=== PATIENT | male | born 1975 | race Caucasian/White ===

== ENCOUNTER 2019-10-13 09:37 | Outpatient (CLI) | payer OTHER, SELFPAY ==
--- NOTE | ~2019-10-13 | XR_ITS ---
EXAMINATION: XR foot RT min 3V DATE: 10/13/2019 09:59 INDICATION: Lateral right foot pain TECHNIQUE: Dorsoplantar, two oblique and lateral views of the right foot were obtained. COMPARISON: None. FINDINGS: Alignment is normal. No fracture. Joint spaces are normal. Soft tissues are unremarkable. IMPRESSION: 1. Negative right foot radiographs. Reviewed, dictated and finalized at location B.
== END 2019-10-13 09:38 | disposition home or self-care (01) ==
LOC: ANHIMG 09:43
PROVIDERS: Visit Provider Podiatrist Foot & Ankle Surgery
DX: M79.671 Pain in right foot (principal)
CPT/HCPCS: 73630

== ENCOUNTER 2022-03-17 17:10 | Emergency (ER) | payer OTHER, SELFPAY ==
--- NOTE | 2022-03-17 17:22 | ED.GENADULT ---
HPI - General Adult General Chief complaint: Urogenital-Male Stated complaint: swelling in groin Time Seen by Provider: 03/17/22 17:27 Source: patient, RN notes reviewed and old records reviewed Mode of arrival: ambulatory Limitations: no limitations History of Present Illness HPI narrative: 46-year-old male with a history of hypertension and leukemia comes in with increased swelling to abdomen, penis and scrotum. Patient states it started about a week ago, had increased his water pill per his doctor's advice but has not called him back. states the swelling only gets better when he lays down for period of time but returns within 15 minutes of standing up. Patient denies any trouble with urination. Patient has not contacted his leukemia doctor today. reports that he was told that if he does continue to have swelling to go to [place] [facility] and not to an urgent care. Patient is not willing to go to the ER currently. discussed with patient and What our limitations are, unable to do ultrasound, unable to do blood work and the importance of having follow-up at [place] where his leukemia doctor is located. At that time patient and decided to leave. We also discussed that we are not even on the same computer system as [facility]. Onset (ago): week(s) (1) Related Data Home Medications Medication Instructions Recorded Confirmed dasatinib 100 mg tablet (Sprycel) mg PO 03/17/22 furosemide 40 mg tablet mg 03/17/22 insulin glargine-yfgn 100 unit/mL unit subcut 03/17/22 (3 mL) subcutaneous pen (Semglee (insulin glargine-yfgn) Pen) insulin lispro 100 unit/mL subcut 03/17/22 subcutaneous pen (Humalog KwikPen (U-100) Insulin) pen needle, diabetic 29 gauge x 03/17/22 03/17/2202/13 (BD Ultra-Fine Original Pen Needle) pioglitazone 15 mg-metformin 850 tablet 03/17/22 mg tablet potassium chloride 20 mEq meq PO 03/17/22 tablet,extended release(part/cryst) (Klor-Con M) semaglutide 0.25 mg or 0.5 mg (2 mg subcut 03/17/22 mg/1.5 mL) subcutaneous pen injector (Ozempic) spironolactone 25 mg tablet mg 03/17/22 timolol maleate 0.5 % eye drops drp 03/17/22 Allergies Allergy/AdvReac Type Severity Reaction Status Date / Time Penicillins Allergy Unknown Verified 01/19/15 15:06 Review of Systems Review of Systems: All systems reviewed & are unremarkable except as noted in HPI and below Constitutional: Constitutional: Reports no additional constitutional complaints Eyes: Eyes: Reports no additional eye complaints ENT: Reports system reviewed and no additional complaints, except as documented Cardiovascular: Cardiovascular: Reports no additional cardiovascular complaints, Denies chest pain and Denies dyspnea Respiratory: Respiratory: Reports no additional respiratory complaints, Denies chest congestion, Denies cough and Denies dyspnea Gastrointestinal: Gastrointestinal: Reports no additional gastrointestinal complaints, Denies abdominal pain, Denies nausea and Denies vomiting Genitourinary: Comments: Swelling Musculoskeletal: Musculoskeletal: Reports no additional musculoskeletal complaints Integumentary/Breasts: Skin/Breast: Reports system reviewed and no additional complaints, except as docu Neurologic: Reports system reviewed and no additional complaints, except as documented Psychiatric: Psychiatric: Reports no additional psychiatric complaints Allergic/Immunologic: Allergic/Immunologic: Reports no additional allergic/immunologic complaints PMFSH Comments At the time of my signature, I reviewed and agree with the nursing past medical, surgical, social, and family history. There is no relevant family history pertinent to the patient complaint. Exam Const: General: cooperative, healthy appearing, comfortable, no acute distress, well developed, alert and well nourished Nutritional Appearance: well nourished and obese Orientation/consciousness: patient oriented x3 Limitatio
[2022-03-17 17:24] VITALS: BP 154/69; PULSE 86; RESP 18; TEMP 36.4; O2SAT 99
== END 2022-03-17 17:38 | disposition home or self-care (01) ==
PROVIDERS: Emergency Provider Nurse Practitioner; PCP Family Medicine
DX: C95.90 Leukemia, unspecified not having achieved remission (principal); I10 Essential (primary) hypertension
CPT/HCPCS: 99211; G0463

== ENCOUNTER 2022-05-10 09:44 | Emergency (ER) | payer OTHER, SELFPAY ==
--- NOTE | 2022-05-10 09:50 | ED.URI ---
HPI - URI/Sore Throat General Chief Complaint: Upper Respiratory Infection Stated Complaint: Sore Throat,Congestion,Cough Time Seen by Provider: 05/10/22 10:11 Source: patient and RN notes reviewed Mode of arrival: ambulatory Limitations: no limitations History of Present Illness HPI Narrative: 46-year-old male presents with concern for 2 week history of nasal congestion, rhinorrhea, cough. Reports he started getting a sore throat last night with fever and chills. He reports he has been taking Mucinex DM. Reports a co-worker has strep throat MD elicited complaint: cough, sore throat and nasal congestion Related Data Home Medications Medication Instructions Recorded Confirmed dasatinib 100 mg tablet (Sprycel) mg PO 03/17/22 furosemide 40 mg tablet mg 03/17/22 insulin glargine-yfgn 100 unit/mL unit subcut 03/17/22 (3 mL) subcutaneous pen (Semglee (insulin glargine-yfgn) Pen) insulin lispro 100 unit/mL subcut 03/17/22 subcutaneous pen (Humalog KwikPen (U-100) Insulin) pen needle, diabetic 29 gauge x 03/17/22 03/17/22/2 (BD Ultra-Fine Original Pen Needle) pioglitazone 15 mg-metformin 850 tablet 03/17/22 mg tablet potassium chloride 20 mEq meq PO 03/17/22 tablet,extended release(part/cryst) (Klor-Con M) semaglutide 0.25 mg or 0.5 mg (2 mg subcut 03/17/22 mg/1.5 mL) subcutaneous pen injector (Ozempic) spironolactone 25 mg tablet mg 03/17/22 timolol maleate 0.5 % eye drops drp 03/17/22 Allergies Allergy/AdvReac Type Severity Reaction Status Date / Time Penicillins AdvReac Unknown Unknown Verified 05/10/22 09:55 Review of Systems Review of Systems: CONSTITUTIONAL: Report malaise, chills, fever. EYES: Denies visual changes, redness, or discharge. ENT: Reports rhinorrhea, congestion, sinus pain, and sore throat. CARDIOVASCULAR: Denies chest pain, palpitations, or edema. RESPIRATORY: Reports cough. Denies dyspnea. GASTROINTESTINAL: Denies abdominal pain, nausea, vomiting, diarrhea SKIN: Denies rash or itching. MUSCULOSKELETAL: Denies myalgia. NEUROLOGIC: Denies headache. All systems reviewed & are unremarkable except as noted in HPI and below PMFSH Comments At time of signature, agree with nursing past medical, surgical, social and family history. There is no relevant family history pertinent to the presenting complaint Exam Narrative: GENERAL: Well-appearing, well-nourished, and in no acute distress. HEAD: Normocephalic EYES: PERRLA, conjunctivae clear ENT: Nares clear, turbinates edematous and erythematous, yellow discharge. Mucous membranes moist. TM pearly ricketts with dull light reflex bilaterally; no tragal tenderness. Oropharynx not erythematous without lesions. Tonsils not enlarged and without exudate, no drooling, no hoarseness, no trismus, uvula midline. NECK: Supple. No lymphadenopathy CHEST: Clear to auscultation, breath sounds equal. No wheezing, rhonchi, rales, or stridor. No respiratory distress, speaks in full sentences. HEART: Regular rate and rhythm. No murmur heard. SKIN: Warm, dry, no rash. NEURO: Alert and oriented x3. PSYCH: Normal mood and affect Course Course Emergency Course: Patient is aware of diagnosis, understands and agrees to treatment plan. Anticipatory guidance given. Patient agrees to follow-up as directed and is aware of reasons to seek care at the emergency department. Portions of this record may have been created with voice recognition software Level of Care: Express Care Visit Vital Signs Vital signs: Reviewed. MDM - URI/Sore Throat MDM Narrative Medical decision making narrative: Differential diagnosis considered: Jamison virus, strep pharyngitis, allergic rhinitis, upper respiratory tract infection, sinusitis, rhinosinusitis, nasopharyngitis. viral pharyngitis, otitis media, otitis externa, pneumonia, bronchitis, viral cough syndrome, viral syndrome, and influenza. Exam findings show no acute concerns or changes; patient is non
[2022-05-10 09:56] VITALS: BP 137/82; PULSE 77; RESP 18; TEMP 36.9; O2SAT 98
== END 2022-05-10 10:24 | disposition home or self-care (01) ==
PROVIDERS: Emergency Provider Nurse Practitioner; PCP Family Medicine
DX: J01.90 Acute sinusitis, unspecified (principal); E11.9 Type 2 diabetes mellitus without complications; Z85.6 Personal history of leukemia
CPT/HCPCS: 87081; 87880; 99213; G0463

== ENCOUNTER 2024-08-18 14:39 | Emergency (ER) | payer OTHER, SELFPAY ==
--- OUTSIDE RECORDS SUMMARY | 2024-08-18 14:41 | XMS_ITS | Encounter Summary ---
Author Organization [facility] Address [address] [place] [address] Phone Care Team Providers Care Planning Engineer Name Role Phone Bernice Zepeda MD Unavailable Efrain Zamarripa MD Unavailable Rebeca Rodriguez MD Unavailable [phone] Roddy España MD Primary Care Provider [phone] Micaela Teran Unavailable Encounter Details Date Type Department Care Team (Late st Contact Info) Description 08/06/2024 Results Follow-Up [facility] Cardiology [address], [address] [place] [address] [place], [place] [address] [place] [address] Pro B-type natriuretic peptide, CBC with auto differential, Comprehensive metabolic panel, Additional followed-up results: 4 Social History Tobacco Use Types Packs/Day Years Used Date Smoking Tobacco: Former Cigarettes Q uit: 2009 Passive Smoke Exposure: Past Smokeless Tobacco: Never Alcohol Use Standard Drinks/Week Comments Never 0 (1 standard drink = 0.6 oz pur e alcohol) AUDIT-C Answer Date Recorded Frequency of Alcohol Consumption Never 10/22/2018 Average Number of Drinks Not on file 019 Frequency of Binge Drinking Not on file 10/13 Sex and Gender Information Value Date Recorded Sex Assigned at Not on file Legal Sex Male 10:14 PM [employer] Gender Identity Not on file Sexual Orientation Male 07/15/2023 3: 50 PM CDT 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 Not on file Not on file Not on file documented as of this encounter Plan of Treatment Not on file documented as of this encounter Visit Diagnoses Not on filedocumented in this encounter Care Teams Planning Engineer Relationship Specialty Start Date End Date Roddy España MD [facility] [place] [address] PCP - General Family Medicine 01/22/24 Bernice Zepeda MD Referring Physician Endocrinology Diabetes & Metabolism 01/10/23 Efrain Zamarripa MD Referring Physician Cardiology 07/12/23 Rebeca Rodriguez MD Medical Oncologist/Hematologis t Hematology 07/12/23 Micaela Teran PA [address] [facility], [address] [address] Physician Cloth Sponger Physician Cloth Sponger 07/20/24 documented as of this encounter
--- OUTSIDE RECORDS SUMMARY | 2024-08-18 14:42 | XMS_ITS | Clinical Summary ---
Author Organization [facility] Address [address] [place] [address] Care Team Providers Care Financial Aids Officer Name Role Phone Bernice Zepeda MD Unavailable Efrain Zamarripa MD Unavailable Rebeca Rodriguez MD Unavailable Roddy España MD Primary Care Provider Micaela Teran Unavailable Allergies Active Allergy Reactions Criticality Noted Date Comments Penicillins Hives Medium 08/18/2017 Medications multivit-min/folic/ vit K/lycop (MEN'S MULTIVITAMIN ORAL) Take by mouth every morning Active ergocalciferol (VITAMIN D) 50,000 unit capsule once a week Activ e glucagon (BAQSIMI) 3 mg/actuation spray,non-aerosol Administer 1 spray into one nostril as needed (hypoglycemia , repeat after 15 minutes if needed) 1 each 021 Active daSATinib (SpryceL) 50 mg tabletIndications:C ML (chronic myelocytic leukemia) (HCC) Take 1 tablet (50 mg total) by mouth daily 90 tablet 1 024 Active pen needle, diabetic (BD Ultra-Fine Orig Pen Needle) 29 gauge x 1/2 needleIndications:T ype 2 diabetes mellitus with other specified complication, with long-term current use of insulin (HCC) USE WITH INSULIN INJECTIONS FOUR TIMES A DAY 400 each 024 Active blood-glucose sensor (Dexcom G7 Sensor) deviceIndications:T ype 2 diabetes mellitus with other specified complication, with long-term current use of insulin ([facility]) Use for continuous glucose monitor. Change sensor every 10 days. 9 each 3 024 Active pioglitazone-metfor min (ACTOPLUS MET) 15-850 mg per tabletIndications:T ype 2 diabetes mellitus with other specified complication, with long-term current use of insulin ([facility]) Take 1 tablet by mouth 2 (two) times a day with meals 180 tablet 3 025 2025 Active insulin lispro (HumaLOG) 100 unit/mL pen for injectionIndication s:Type 2 diabetes mellitus with other specified complication, with long-term current use of insulin ([facility]) Inject under the skin before meals, 12 units with breakfast, 14 units with lunch and 12 units with dinner plus 1:25 > 150 mg/dL. TDD 60 units daily 60 mL 3 025 Active dulaglutide (Trulicity) 3 mg/0.5 mL pen injectorIndications :Type 2 diabetes mellitus with other specified complication, with long-term current use of insulin ([facility]) Inject 0.5 mL (3 mg total) under the skin every 7 days 6 mL 2 025 Active fenofibrate nanocrystallized (TRICOR) 145 mg tabletIndications:H ypertriglyceridemia Take 1 tablet (145 mg total) by mouth daily 90 tablet 3 025 2025 Active torsemide (DEMADEX) 20 mg tabletIndications:E ssential hypertension,CML (chronic myelocytic leukemia) ([facility]),Acute on chronic diastolic heart failure ([facility]) Take 2 tablets (40 mg total) by mouth 2 (two) times a day Take 2 tablets (40 mg) by mouth daily with breakfast and 2 tablets (40 mg) with lunch 360 tablet 3 025 Active insulin glargine (TOUJEO MAX) 300 unit/mL (3 mL) pen for injectionIndication s:Type 2 diabetes mellitus with other specified complication, with long-term current use of insulin ([facility]) 48 units daily 025 Active empagliflozin (Jardiance) 25 mg tabletIndications:C ML (chronic myelocytic leukemia) ([facility]),Chronic diastolic heart failure (HCC) 1 pill daily 025 Active empagliflozin (Jardiance) 10 mg tabletIndications:C ML (chronic myelocytic leukemia) (HCC),Chronic diastolic heart failure (HCC) 2 pills daily 025 2024 Discontinued Active Problems Problem Noted Date Diagnosed Date Type 2 diabetes mellitus with other specified co mplication 04/14/2024 Assessment & Plan (07/20/2024 7:09 PM CDT): Glucoses running somewhat high, needs a little more basal insulin and increase Jardiance, to start. Mixed hyperlipidemia 04/14/2024 Assessment & Plan (07/20/2024 7:09 PM CDT): Continue fenofibrate and improve glycemic control. Assessment & Plan (04/14/2024 4:47 PM INTERNAL SECURITY MANAGER): - Last LDL 35, TG 365 (01/2023), TG above goal - Need to optimize glycemic control - Repeat lipid panel - Consider starting statin for primary cardiovascular protection and to help achieve TG target <150 mg/dL Skin lesion 01/22/2024 Class 2 severe obesity due t o excess calories with serious comorbidity and body mass index (BMI) of 37.0 to 37.9 in adult 10/16/2023 Assessment & Plan (04/14/2024 4:48 PM INTERNAL SECURITY MANAGER): - Continue Trulicity 1.5 mg once a week. Plan to up-titrate to 3 mg once a week. - Will plan to continue to up-titrate dose as tolerated per patient. Assessment & Plan (10/16/2023 3:26 PM CDT): - Discussed carb counting and tracking. Advised to eat less than 100 grams of carbs per day. - Advised to increase physical activity - alternating between cardio and weight based exercise. ADA recommends at least 150 minutes of moderate physical activity weekly. - Increase Trulicity to 1.5 mg weekly - will continue to up-titrate as tolerated. Double vision 03/27/2022 Elevated JVP (jugular venous pressure) 2 Essential hypertension 11/22/2020 Assessment & Plan (04/14/2024 4:43 PM INTERNAL SECURITY MANAGER): - At goal today - Continue current management Assessment & Plan (10/16/2023 3:25 PM CDT): - At goal today Assessment & Plan (01/31/2021 4:45 PM INTERNAL SECURITY MANAGER): - chlorthalidone 12.5 mg as prescribed by cardio-oncology Plantar fasciitis of right foot 08/04/2020 Vitamin D insufficiency 02/10/2020 Assessment & Plan (04/14/2024 4:48 PM INTERNAL SECURITY MANAGER): - Last Vitamin D 37 (02/2022), replete - Continue chronic supplement Assessment & Plan (01/16/2024 9:37 PM INTERNAL SECURITY MANAGER): Continue chronic supplement. Assessment & Plan (07/15/2023 8:43 PM CDT): Continue chronic supplement. Assessment & Plan (01/10/2023 9:43 PM INTERNAL SECURITY MANAGER): Continue chronic supplement. Assessment & Plan (09/20/2022 7:40 PM CDT): Continue chronic supplement. Recheck level Assessment & Plan (11/18/2021 5:16 PM CDT): He is taking terminal supervisor supplements. Check Vitamin D. Assessment & Plan (08/12/2021 8:02 PM CDT): He is taking terminal supervisor supplements. Check Vitamin D. Assessment & Plan (01/31/2021 7:05 PM INTERNAL SECURITY MANAGER): Continue chronic supplement. Assessment & Plan (02/11/2020 4:06 PM INTERNAL SECURITY MANAGER): Continue chronic supplement and recheck level Proliferative diabetic retin opathy associated with type 2 diabetes mellitus 10/23/2018 Erectile dysfunction 10/22/2018 Assessment & Plan (10/23/2018 2:22 PM CDT): First need to screen for general metabolic issues, improved glycemic control. 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 Kidney fxn stable thusfar. - Give 300 mg allopurinol PO today now - D/c home with 1 mo supply of 300mg allopurinol qdaily - [facility] will monitor and decide on extent and duration of therapy. CML (chronic myelocytic leukemia) 08/18/2017 Assessment & Plan (07/20/2024 7:10 PM CDT): May affect the interpretation of the hemoglobin A1c. Not currently receiving steroids. Assessment & Plan (01/10/2023 9:42 PM INTERNAL SECURITY MANAGER): May affect the interpretation of the hemoglobin A1c. Assessment & Plan (05/12/2019 4:23 PM CDT): May affect the interpretation of the hemoglobin A1c. Also need to recheck vitamin-D level Assessment & Plan (08/19/2017 2:50 PM CDT): Almost certainly CML per further blood smear review by hematology. Classic features include myelocyte bump, hypereosinophilia and basophilia not typically associated with leukemoid reaction. No blasts seen and no c/f AML or hyperviscosity syndrome at this level of leukocytosis. - Hematology and ID both consulted - appreciate recs - Plan for follow up with [facility] in [facility] (Dr. Rebeca Rodriguez) this coming Sunday08/21/17 -- Send out for BCR-ABL serum PCR -- If PCR positive, may spare the patient future BM biopsy - Plan to begin treatment w/ BCR-Abl inhibitors in the near future - Safe to discharge home today Localized swelling, mass, or lump of lower extre mity, left 08/18/2017 Assessment & Plan (08/19/2017 2:51 PM CDT): Appearance 1 wk ago in s/o repeated camping and manual labor while on knees. Suspect benign (nonballotable) but may be potential biopsy source if c/f lymphoma (would be atypical given his leukocytosis is neutrophilic). 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 Needs insulin adjustments as well as restart Trulicity. Assessment & Plan (10/16/2023 3:24 PM CDT): - Diabetes is complicated by proliferative diabetic retinopathy, mild renal impairment, HTN, HLD and obesity. Uncontrolled. Lab Results Component Value Date HGBA1C 7.8 10/16/2023 Per [place] [employer], goal A1c is less 7% without significant hypoglycemia. - Management Goal: reduce A1c <7% - New Regimen: Pioglitazone-Metformin 15-850 mg BID Jardiance 10 mg daily Toujeo U300 35 units daily Increase Trulicity 1.5 mg weekly Try carb ratio of 1 unit for every 10 grams of carbs plus 1:25 > 150 mg/dL with meals - Discussed base + sliding scale versus carb ratio. Discussed carb counting and tracking using apps such as travayl. Carb counting handout provided. Discussed trial of using carb ratio to see if that resolves his issues surrounding dinner time. - Will continue to titrate Trulicity as tolerated. He would greatly benefit from other GLP1-RA therapy such as Ozempic or Mounjaro. - Advised bolusing 10-15 minutes before each meal. - Advised annual dilated eye exam - UTD. - Advised checking blood glucose before driving - Discussed hypoglycemia risk, and treatment such as the rule of 15s and the use of glucagon - Annual labs are UTD - Update me on consistent glycemia excursions or if there is any hypoglycemia. - Advised and ensured that I am available via phone or [employer] if they have any concerns for hypo/hyperglycemia, medication refills, etc. Assessment & Plan (07/15/2023 8:43 PM CDT): Suboptimal control but medication changes and issues. Need to follow updated numbers once therapy has stabilized. Assessment & Plan (01/10/2023 9:44 PM INTERNAL SECURITY MANAGER): Glucoses variable but within a reasonable margin of safety. On multiple modalities of therapy. Needs repeat A1c now that he is back on GLP-1 agonist therapy. Also need lipid panel Assessment & Plan (09/20/2022 7:41 PM CDT): Glucoses high, particularly after meals so needs adjustment in mealtime insulin. Would also benefit from restarting GLP1 agonist therapy. Assessment & Plan (11/18/2021 5:31 PM CDT): Check Hemoglobin A1c. Continue using Dexcom for continuous monitoring and low BG alarms. He denies recent trouble with hypoglycemia. He is tolerating pioglitazone 30mg and metformin 1700mg well and without side effects at this time. He is taking Semglee AM daily, consistently. He is taking Humalog with meals and using sliding scale. Recommend starting GLP1-RA to help prevent hyperglycemia and promote weight loss. -He denies a history of pancreatitis and family history of MTC. The side effects have been discussed. Have labs done. Assessment & Plan (08/12/2021 8:05 PM CDT): Check Hemoglobin A1c. Continue using Dexcom for continuous monitoring and low BG alarms. He denies recent trouble with hypoglycemia. He is tolerating pioglitazone 30 mg and metformin 1,700mg well and without side effects at this time. He is taking Semglee AM daily, consistently. He is taking Humalog with meals and using sliding scale. He plans to make diet and lifestyle changes to better manage BG. Get labs done. Assessment & Plan (01/31/2021 7:06 PM INTERNAL SECURITY MANAGER): A1c 7% but with nighttime hypoglycemia. Will switch to levemir as patient's insurance will not cover lantus in February 2021. Decrease long acting insulin to 35 units daily. Can decrease down to 30 units if needed when restarting weight loss program. Glucagon prescribed for emergency use. Continue mealtime insulin of 07/20/09. Assessment & Plan (02/11/2020 4:07 PM INTERNAL SECURITY MANAGER): Needs adjustments in his insulin, primarily to add insulin at lunchtime and increase breakfast and dinnertime doses Assessment & Plan (05/12/2019 4:23 PM CDT): Asymptomatic, glucoses reasonably stable but needs some follow-up labs Assessment & Plan (01/21/2019 5:01 PM INTERNAL SECURITY MANAGER): The patient has type 2 diabetes, currently taking insulin in oral agents for his diabetes management. His hemoglobin A1c at today's visit of January 21, 2019 was 7.9%. He has not been following any structured diet at this time. Review carbohydrate counting in written information was provided. He is planning to reduce his carbohydrate intake. He has a [employer] Chandrakant but has had difficulty with the sensor adhering to his skin. Discussed a variety of techniques and products that he can use to improve the adherence of the adhesive so that it can last a full 14 days. He felt he had better glycemic control and he was able to use his glucose sensor. With him making lifestyle modifications and with him resuming the use of his continuous glucose monitor, will continue the same medications at this time. If his glucose pattern is not showing improvement, he is to let me know so medications can be further adjusted. His E has retinopathy receiving injections, and his eye exam is up-to-date. Labs were reviewed and are up-to-date. He will return for scheduled follow-up with Dr. Zepeda in April 2019. Assessment & Plan (10/23/2018 2:14 PM CDT): Suboptimal control, prone to lows. Needs adjustments in insulin with lower basal and better, flexible Humalog. Intelligent, motivated and will benefit from follow-up Education. Because of his variable lifestyle and glucoses, he should have a Chandrakant testing device. Also needs follow-up labs Assessment & Plan (08/19/2017 2:50 PM CDT): Hyperglycemic after delay in restarting pt's home lantus. Stable. - Continue prior medications at home when discharged Tick bites 08/18/2017 10/22/2018 Assessment & Plan (08/19/2017 2:52 PM CDT): Improved/resolved - no longer pruritic. In setting of extensive camping outdoors and +identified ticks by patient and family. Likely additional contributions from mosquito bites, chiggers etc. from outdoor contact. - Benadryl 25 mg PO QID PRN for pruritis - Eucerin cream PRN to apply to affected areas. Encounters Date Type Department Care Team Description 08/07/2024 Orders Only [facility] Cardiology [facility] Floor 1, [address] [place] [address] Gayla Mcallister RN Essential hypertension (Primary Dx); High risk medication use; Encounter for monitoring cardiotoxic drug therapy 08/07/2024 Orders Only [facility] Hematology [facility] Floor 6 [place] [address] Mariana Giraldo CML (chronic myelocytic leukemia) (HCC) (Primary Dx) 08/06/2024 Orders Only [facility] Hematology [facility] [address] [place] [address] Elayne Abel RN CML (chronic myelocytic leukemia) (HCC) (Primary Dx) 08/06/2024 Results Follow-Up [facility] Cardiology [facility] Floor 1, [address] [place] [address] Miryam Flanagan NP Pro B-type natriuretic peptide, CBC with auto differential, Comprehensive metabolic panel, Additional followed-up results: 4 08/05/2024 1:30 PM CDT Office Visit [facility] Hematology [address] [facility] [address] [place] [address] Sara Lee NP CML (chronic myelocytic leukemia) (HCC) (Primary Dx) 08/05/2024 1:00 PM CDT Lab [facility] Hematology [address] [facility] [address] [place] [address] CML (chronic myelocytic leukemia) (HCC) 08/05/2024 12:45 PM CDT Lab [facility] [address] [place] [address] [address] [place] [address] Chronic diastolic heart failure (HCC); Acute on chronic diastolic heart failure (HCC); CML (chronic myelocytic leukemia) (HCC); Essential hypertension; Elevated JVP (jugular venous pressure); High risk medication use 07/30/2024 Documentation [facility] Hematology [address] [facility] [address] [place] [id number] Razia Danielle RMA Pre Cert (BCR ABL P210 NPCR) 07/25/2024 9:00 AM CDT Office Visit [facility] Cardiology [address] [facility] Floor 1, [address] [place] [id number] Miryam Flanagan NP Chronic diastolic heart failure (HCC) (Primary Dx); Acute on chronic diastolic heart failure (HCC); CML (chronic myelocytic leukemia) (HCC); Essential hypertension; Elevated JVP (jugular venous pressure); High risk medication use 07/17/2024 11:20 AM CDT Telemedicine [facility] Endocrinology Metabolism and Lipid [address] [facility] 13th [place] [address] Bernice Zepeda MD Type 2 diabetes mellitus with other specified complication, with long-term current use of insulin (HCC) (Primary Dx); Mixed hyperlipidemia; CML (chronic myelocytic leukemia) (HCC); Vitamin D insufficiency; Chronic diastolic heart failure (HCC) from Last 3 Months Surgical History Surgery Date Site/Laterality Comments BACK SURGERY 02/12/2007 - 02/12/2008 L5 microdiscectomy EYE SURGERY 1991 SHOULDER ARTHROSCOPY W/ LABRAL REPAIR 02/12/2011 - 02/12/2012 Right RETINAL LASER PROCEDURE 02/12/2018 - 02/11/2019 Bilateral EYE SURGERY 02/12/2018 - 02/11/2019 Bilateral Multiple Medical History Medical History Date Comments Cancer (HCC) 2018 lukemia Erectile dysfunction Family History Medical History Relation Name Comments Skin cancer Father Diabetes Maternal Grandfather Prostate cancer Maternal Grandfather Hypertension Mother Diabetes Paternal Grandmother Stroke Paternal Grandmother Relation Name Status Comments Father Alive Maternal Grandfather Mother Alive Paternal Grandmother Social History Tobacco Use Types Packs/Day Years Used Date Smoking Tobacco: Former Cigarettes Q uit: 2009 Passive Smoke Exposure: Past Smokeless Tobacco: Never Tobacco Cessation:Counseling Given: Not Answered Alcohol Use Standard Drinks/Week Comments Never 0 (1 standard drink = 0.6 oz pur e alcohol) AUDIT-C Answer Date Recorded Frequency of Alcohol Consumption Never 10/22/2018 Average Number of Drinks Not on file 019 Frequency of Binge Drinking Not on file 10/13 Sex and Gender Information Value Date Recorded Sex Assigned at Not on file Legal Sex Male 10:14 PM INTERNAL SECURITY MANAGER Gender Identity Not on file Sexual Orientation Male 07/15/2023 3: 50 PM CDT 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 Not on file Not on file Not on file Obstetrics History Last Filed Vital Signs Vital Sign Reading Time Taken Comments Blood Pressure 130/80 08/05/2024 1:11 PM CDT Pulse 79 08/05/2024 1:11 PM CDT Temperature 36.8 C (98.3 F) 08/05/2024 1:11 PM CDT Respiratory Rate 16 08/05/2024 1:11 PM CDT Oxygen Saturation 98% 08/05/2024 1:11 PM CDT Inhaled Oxygen Concentration - - Weight 139.7 kg (308 lb) 08/05/2024 1:11 PM CDT Height 193 cm (6' 4) 08/05/2024 1:11 PM CDT Body Mass Index 37.49 08/05/2024 1:11 PM CDT Plan of Treatment Health Maintenance Due Date Last Done Comments Colon Cancer Screening-Colonoscopy 1973 Depression Screening 1973 Hepatitis C Screening 1973 Prostate Cancer Screening-PSA 1973 Dilated Eye Exam 1973 Foot Exam 1973 DTaP/Tdap/Td Vaccine (1 - Tdap) 1984 Hepatitis B Screening 09/07/1991 Regular Well Visit/Exam 18-64 09/07/1991 Pneumococcal vaccine <65 (1 of 2 - PCV) 1992 Zoster Vaccine (1 of 2) 1992 Influenza Vaccine (#1) 2024 Hemoglobin A1C 10/15/2024 04/14/2024, 09/0 04/2023, 01/23/2023, Additional history exists Albumin Creatinine Ratio, Urine 04/21/2025 04/21/2024, 02/24/2022, 08/08/2019 Lipid Panel 04/21/2025 04/21/2024, 01/12, 02/24/2022, Additional history exists eGFR 08/05/2025 08/05/2024, 01/12, 09/19/2023, Additional history exists Procedures Procedure Name Priority Date/Time Associated Diagnosis Comments DIFFERENTIAL AUTO Routine 08/05/2024 12: 54 PM CDT CML (chronic myelocytic leukemia) (HCC) CBC WITH AUTO DIFFERENTIAL Routine 08/05/2024 12:54 PM CDT CML (chronic myelocytic leukemia) (HCC) EGFR Routine 08/05/2024 12:52 PM CDT CML (chronic myelocytic leukemia) (HCC) BCR/ABL P210 QUANTITATIVE, PCR Routine 08/05/2024 12:52 PM CDT CML (chronic myelocytic leukemia) (HCC) LACTATE DEHYDROGENASE Routine 08/05/2024 12:52 PM CDT CML (chronic myelocytic leukemia) (HCC) COMPREHENSIVE METABOLIC PANEL Routine 08/05/2024 12:52 PM CDT CML (chronic myelocytic leukemia) (HCC) PRO B-TYPE NATRIURETIC PEPTIDE Routine 08/05/2024 12:52 PM CDT Chronic diastolic heart failure (HCC) Acute on chronic diastolic heart failure (HCC) CML (chronic myelocytic leukemia) (HCC) Essential hypertension Elevated JVP (jugular venous pressure) High risk medication use LIPID PANEL Routine 04/21/2024 2:10 PM CDT Type 2 diabetes mellitus with other specified complication, with long-term current use of insulin (HCC) ALBUMIN CREATININE RATIO, URINE Routine 04/21/2024 2:10 PM CDT Type 2 diabetes mellitus with other specified complication, with long-term current use of insulin (HCC) POCT HEMOGLOBIN A1C Routine 04/14/2024 3 :30 PM INTERNAL SECURITY MANAGER Type 2 diabetes mellitus with other specified complication, with long-term current use of insulin (HCC) from Last 3 Months or Most Recently Relevant to Health Maintenance Results * (ABNORMAL) Differential, auto (08/05/2024 12:54 PM CDT) Neutrophil abs 5.10 1.50 - 6.50 K/cumm Imm gran abs 0.03 0.00 - 0.10 K/cumm [facility] Lymphocyte abs 1.46 0.80 - 3.30 K/cumm [facility] Monocyte abs 0.95(H) 0.20 - 0.80 K/cumm [facility] Eosinophil abs 0.16 0.00 - 0.50 K/cumm [facility] Basophil abs 0.05 0.00 - 0.10 K/cumm [facility] Neutrophil pct 65.8 % [facility] Comment: Interpretive Data Percent cell count reference ranges are not reported, since discordance with absolute values may lead to misinterpretation of CBC data. Current Interpretive Data was last revised on 2017. Imm gran pct 0.4 % [facility] Comment: Interpretive Data Percent cell count reference ranges are not reported, since discordance with absolute values may lead to misinterpretation of CBC data. Current Interpretive Data was last revised on 2017. Lymphocyte pct 18.8 % [facility] Comment: Interpretive Data Percent cell count reference ranges are not reported, since discordance with absolute values may lead to misinterpretation of CBC data. Current Interpretive Data was last revised on 2017. Monocyte pct 12.3 % [facility] Comment: Interpretive Data Percent cell count reference ranges are not reported, since discordance with absolute values may lead to misinterpretation of CBC data. Current Interpretive Data was last revised on 2017. Eosinophil pct 2.1 % [facility] Comment: Interpretive Data Percent cell count reference ranges are not reported, since discordance with absolute values may lead to misinterpretation of CBC data. Current Interpretive Data was last revised on 2017. Basophil pct 0.6 % [facility] Comment: Interpretive Data Percent cell count reference ranges are not reported, since discordance with absolute values may lead to misinterpretation of CBC data. Current Interpretive Data was last revised on 2017. Blood 08/05/2024 12:5 4 PM CDT 08/05/2024 3:41 PM CDT Sara Lee VALVE STEAMER LAB BLOOD ORDERABLES Final Result Performing Organization Address City/[facility]/ZIP Co de Phone Number [facility] Department [place] [address] * CBC with auto differential (08/05/2024 12:54 PM CDT) WBC 7.75 3.80 - 9.90 K/cumm Hgb 13.5 13.0 - 17.5 g/dL [facility] Hct 41.0 38.9 - 50.3 % [facility] Plt 239 150 - 400 K/cumm [facility] MPV 10.8 9.1 - 12.3 fL [facility] RBC 4.71 4.30 - 5.80 M/cumm [facility] MCV 87.0 81.3 - 96.4 fL [facility] MCH 28.7 27.1 - 33.3 pg [facility] MCHC 32.9 32.3 - 35.7 g/dL [facility] RDW CV 14.6 11.1 - 14.9 % [facility] RDW SD 46.5 35.7 - 48.1 fL [facility] NRBC abs 0.00 0.00 - 0.01 K/cumm [facility] Blood 08/05/2024 12:5 4 PM CDT 08/05/2024 3:41 PM CDT Sara Lee VALVE STEAMER LAB BLOOD ORDERABLES Final Result Performing Organization Address City/[facility]/ZIP Co de Phone Number [facility] Department [place] [address] * (ABNORMAL) BCR/ABL p210 Quantitative, PCR (08/05/2024 12:52 PM CDT) [facility] Signature BCR/ABL p210 Positive, below Lower Level of Quantification(A) [facility] BCR/ABL p210 % (IS) <0.0032% [facility] BCR/ABL p210 Interpretation Positive: BCR::ABL1 major (p210) transcripts were detected below the lower level of quantification (LLOQ). [facility] BCR/ABL p210 Specimen Blood [facility] BCR/ABL p210 Result Review Final report reviewed by: CHARLIE Oseguera, [facility])CM, [employer], on 08/07/2024 09:51:58 CDT. [facility] Comment: Interpretive Data A summary of previous BCR::ABL1 major quantitative RT-PCR results for this patient performed in the [facility] Molecular Diagnostics Lab may be found as a cumulative laboratory report in the Results Review section of the Medical Record. Method: The quantitative BCR::ABL1 assay is performed on the [employer]) platform. RNA is extracted, converted to cDNA, and BCR::ABL1 and ABL1 cDNA targets are quantified by real-time PCR amplification. Results are reported as the percentage ratio of BCR::ABL1 fusion transcripts to ABL1 transcripts (BCR::ABL1/ABL1) on the International Scale (Opal HE, 2010). A BCR::ABL1 value of 0.1% on the International Scale represents a major molecular response in CML (Ephrata S, 2008). The analytical sensitivity of this assay is 0.0032% BCR::ABL1/ABL1. Due to assay non-linearity for the BCR::ABL1 p210 isoform at very high and low concentrations, results greater than 10% (above upper limit of quantification or ULOQ) will be reported as > 10% and results detected at less than 0.0032% (below lower limit of quantification or LLOQ) will be reported as < 0.0032% . Limitations: This test only detects the e13a2 and e14a2 BCR::ABL1 major isoforms. A negative result does not exclude the presence of the e1a2 (p190) BCR::ABL1 minor isoforms. False positive or negative results may occur with unusual BCR::ABL1 isoforms. FDA Comment: This test was developed and its performance characteristics determined by this Molecular Diagnostics Lab. Peripheral blood testing has been cleared by the U.S. Food and Drug Administration (FDA). Alternative specimen types, including extracted RNA or bone marrow aspirates have not been cleared or approved by the U.S. Food and Drug Administration. FDA does not require those modifications to go through premarket FDA review. This test is used for clinical purposes. It should not be regarded as investigational or for research. This laboratory is certified under the Clinical Laboratory Improvement Amendments (CLIA) as qualified to perform high complexity clinical laboratory testing. Literature References: Ayde S, Michael L, Franck N, et al. Desirable performance characteristics for BCR-ABL measurement on an international reporting scale to allow consistent interpretation of individual patient response and comparison of response rate between clinical trials. Blood 2008;113:2748-4869. Opal HE, Bess P, Gita P, et al. Establishment of the first World Health Organization International Genetic Reference Panel for quantification of BCR-ABL mRNA. Blood 2010;116:o319-189. [employer] BCR-ABL V2 Package Insert [id number], Rev B (December 2015). Xpert BCR-ABL Monitor, [id number], Rev A, June 2010. This test was performed at: [facility], [facility], [facility]#[id number], Gayla Gilman, Ph.D., [place], [address], [place] Current interpretive data was last revised 2023. Blood 08/05/2024 12:5 2 PM CDT 08/06/2024 10:24 AM CDT Sara Lee NP LAB GENETIC TESTING Final Result [facility] Department [place] [address] [facility] * eGFR (08/05/2024 12:52 PM CDT) eGFR 62 >=60 mL/min/1. 73 m2 Comment: Interpretive Data Reference Interval Normal >/= 90 mL/min/1.73m2 Mildly decreased* 60 - 89 mL/min/1.73m2 Mildly to moderately decreased 45 - 59 mL/min/1.73m2 Moderately to severely decreased 30 - 44 mL/min/1.73m2 Severely decreased 15 - 29 mL/min/1.73m2 Kidney Failure < 15 mL/min/1.73m2 *Relative to young adult level Estimated glomerular filtration rate is determined by the 2020 CKD-EPI equation recommended by the National Kidney Foundation (A Unifying Approach to GFR Estimation: Recommendations of the NKF-ASK Task Force on Reassessing the Inclusion of Race in Diagnosing Kidney Disease, JASN 2020). The CKD-EPI equation should not be used for patients with unstable renal function and has not been validated in children and those over 70. Current interpretive data was last reviewed 2020. Blood 08/05/2024 12:5 2 PM CDT 08/05/2024 3:46 PM CDT us Sara Lee NP LAB BLOOD ORDERABLES Final Result Performing Organization Address City/State/ZIP Co wy Phone Number [facility] Department [place] [address] * Pro B-type natriuretic peptide (08/05/2024 12:52 PM CDT) NT-proBNP <50 <=300 pg/mL Comment: Interpretive Comments: A. Dyspnea in Acute Care Setting All Ages: < 300 pg/ml, acute heart failure unlikely. < 50 yrs: 300 - 450 pg/ml, further investigation warranted. > 450 pg/ml, acute heart failure likely. 50 - 74 yrs: 300 - 900 pg/ml, further investigation warranted. > 900 pg/ml, acute heart failure likely . > or = 75 yrs: 450 - 1800 pg/ml, further investigation warranted. > 1800 pg/ml, acute heart failure likely. B. Non-acute Setting < 75 yrs < 125 pg/ml, rules out heart failure. > or = 125 pg/ml, further investigation warranted. > or = 75 yrs < 450 pg/ml, rules out heart failure. > or = 450 pg/ml, further investigation warranted. - Knowledge of each individual patient's NT-proBNP range may be more useful than using similar cut-points for every patient. Please note that marked elevations in NT-proBNP levels may be observed in state other than Left Ventricular Congestive Failure, including: acute coronary syndromes, right heart strain/failure (including pulmonary embolism and cor pulmonale), critical illness, renal failure, as well as advanced age. - References: 1. Donato DRUMMOND et.al. Eur Heart J. 2006:27:330-337. 2. Roberto HEAD, Bibi COLINDRES. J. AM Melany Cardiol: Cardiovasc Imag. 2009;2: 216- 225. Interpretive Data Last Revised Date: 2017. Blood 08/05/2024 12:5 2 PM CDT 08/05/2024 3:41 PM CDT Miryam Flanagan VALVE STEAMER LAB BLOOD ORDERABLES Final Resul t Performing Organization Address City/[facility]/ZIP Co de Phone Number [facility] Department [place] [address] * Lactate dehydrogenase (LD) (08/05/2024 12:52 PM CDT) [facility] Lactate dehydrogenase (LDH) 242 100 - 250 Units/L Blood 08/05/2024 12:5 2 PM CDT 08/05/2024 3:41 PM CDT us Sara Lee VALVE STEAMER LAB BLOOD ORDERABLES Final Result Performing Organization Address [facility] Co de Phone Number [facility] [place] [address] * (ABNORMAL) Comprehensive metabolic panel (08/05/2024 12:52 PM CDT) [facility] Sodium 140 135 - 145 mmol/L Potassium, pl 3.7 3.3 - 4.9 mmol/L [facility] Chloride 100 97 - 110 mmol/L [facility] CO2 29 22 - 32 mmol/L [facility] Anion gap 11 2 - 15 mmol/L [facility] BUN 22 6 - 25 mg/dL [facility] Creatinine 1.38(H) 0.80 - 1.30 mg/dL [facility] Glucose 143 70 - 199 mg/dL [facility] Comment: Interpretive Data Fasting glucose >/= 126 mg/dl is diagnostic for diabetes. Fasting is defined as no caloric intake for at least 8 hours. Fasting glucose between 100 mg/dl to 125 mg/dl is diagnostic of prediabetes. In a patient with classic symptoms of hyperglycemia or hyperglycemic crisis, a random glucose >/= 200 mg/dl is diagnostic for diabetes. In the absence of unequivocal hyperglycemia, results should be confirmed by repeat testing. The classification and Diagnosis of Diabetes Diabetes Care 2021; 46: S19-S40. Current interpretive data was last revised 2022. Calcium 10.3 8.5 - 10.3 mg/dL [facility] Bilirubin, total 0.5 0.1 - 1.2 mg/dL [facility] Protein, pl 7.5 6.5 - 8.5 g/dL [facility] Albumin 4.5 3.5 - 5.0 g/dL [facility] Alk phos 69 40 - 130 Units/L [facility] ALT 16 7 - 55 Units/L [facility] AST 23 10 - 50 Units/L [facility] Blood 08/05/2024 12:5 2 PM CDT 08/05/2024 3:41 PM CDT Sara Lee NP LAB BLOOD ORDERABLES Final Result [facility] Department [place] [address] * Albumin Creatinine Ratio, Urine (04/21/2024 2:10 PM CDT) Albumin Ur <12.0 mg/L Comment: Interpretive Data No reference range established. Current interpretive data was last revised 2018. Creatinine Ur 33.3 mg/dL [facility] Comment: Interpretive Data No reference range established. Current interpretive data was last revised 2018. Albumin Creatinine Ratio, Ur See Comment 1 - 29 mg/g [facility] Comment:Unable to calculate Urine 04/21/2024 2:10 PM CDT 04/21/2024 3:39 PM CDT us Micaela JACQUES LAB URINE ORDERABLES Enedelia yola Result AL [facility] [place] [address] * (ABNORMAL) Lipid panel (04/21/2024 2:10 PM CDT) Cholesterol 139 30 - 199 mg/dL Comment: Interpretive Data Ages < or = 19 years Acceptable: <170 mg/dL Borderline high: 170-199 mg/dL High: >or= 200 mg/dL Ages > or = 20 years Desirable: <200 mg/dL Borderline high: 200-239 mg/dL High: >or= 240 mg/dL Literature References: 1. Expert Panel on Integrated Guidelines for Cardiovascular Health and Risk Reduction in Children and Adolescents. Pediatrics 2011;128:S213 2. NCEP Expert Panel. Circulation 2004;110:227 Current Interpretive Data was last revised on 2017. Triglycerides 324(H) <=149 mg/dL [facility] Comment: Interpretive Data Ages < or = 9 years Acceptable: <75 mg/dL Borderline high: 75-99 mg/dL High: >or= 100 mg/dL Ages 10 to 20 years Acceptable: <90 mg/dL Borderline high: 90-129 mg/dL High: >or= 130 mg/dL Ages > or = 20 years Desirable: <150 mg/dL Borderline high: 150-199 mg/dL High: 200-499 mg/dL Very high: >or= 499 mg/dL Literature References: 1. Expert Panel on Integrated Guidelines for Cardiovascular Health and Risk Reduction in Children and Adolescents. Pediatrics 2011;128:S213 2. NCEP Expert Panel. Circulation 2004;110:227 Current Interpretive Data was last revised on 2017. HDL 42 >=40 mg/dL [facility] Comment: Interpretive Data Ages < or = 19 years Acceptable: >45 mg/dL Borderline low: 40-45 mg/dL Low: <40 mg/dL Ages > or = 20 years Desirable: >or= 60 mg/dL Low: <40 mg/dL Literature References: 1. Expert Panel on Integrated Guidelines for Cardiovascular Health and Risk Reduction in Children and Adolescents. Pediatrics 2011;128:S213 2. NCEP Expert Panel. Circulation 2004;110:227 Current Interpretive Data was last revised on 2017. LDL, calculated 48 <=129 mg/dL [facility] Comment: Interpretive Data Ages < or = 19 years Acceptable: <110 mg/dL Borderline high: 110-129 mg/dL High: >or= 130 mg/dL Ages > or = 20 years Optimal: <100 mg/dL Near optimal: 100-129 mg/dL Borderline high: 130-159 mg/dL High: >160 mg/dL Calculated using the Ramone LDL-C estimating equation. This equation was implemented on 2023. Prior to this date LDL-C was estimated using the Friedewald equation. Literature References: 1. Expert Panel on Integrated Guidelines for Cardiovascular Health and Risk Reduction in Children and Adolescents. Pediatrics 2011;128:S213 2. NCEP Expert Panel. Circulation 2004;110:227 3. Ramone Dejesus et al. CHAPO Cardiol. 2019June 12;5(5):540-548. doi: 10.1001/[email or web address] Current Interpretive Data was last revised on 2023. Non-HDL Cholesterol 97 mg/dL [facility] Comment: Interpretive Data Ages < or = 19 years Acceptable: <120 mg/dL Borderline high: 120-144 mg/dL High: >145 mg/dL Ages > or = 20 years When triglycerides are >200 mg/dL, Non-HDL cholesterol is a secondary target of therapy with treatment goals that are 30 mg/dL greater than the LDL cholesterol target. Literature References: 1. Expert Panel on Integrated Guidelines for Cardiovascular Health and Risk Reduction in Children and Adolescents. Pediatrics 2011;128:S213 2. NCEP Expert Panel. Circulation 2004;110:227 Current Interpretive Data was last revised on 2017. Chol/HDL ratio 3 [facility] Blood 04/21/2024 2:10 PM CDT 04/21/2024 3:56 PM CDT us Micaela JACQUES LAB BLOOD ORDERABLES Enedelia aceves Result [facility] [place] [address] * POCT hemoglobin A1c (04/14/2024 3:30 PM INTERNAL SECURITY MANAGER) Hemoglobin A1C, POC 7.0 4.0 - 5.6 % Blood 04/14/2024 3:30 PM INTERNAL SECURITY MANAGER Micaela JACQUES POINT OF CARE TEST ORDERA BLES Final Result from Last 3 Months or Most Recently Relevant to Health Maintenance Insurance [facility]PPO Address: [place] [address] [facility]PPO Address: [address] [address] [place] [id number] [facility] [employer] [facility]PPO Address: [facility] [address] [place] [address] Advance Directives For more information, please contact: [phone] * Full Code (Latest Code Status on File) Date Activated Date Inactivated Comments 08/18/2017 5:46 PM 08/19/2017 8:03 PM Care Teams Financial Aids Officer Relationship Specialty Start Date End Date Roddy España MD [address] [place] [address] PCP - General Family Medicine 01/22/24 Bernice Zepeda MD Referring Physician Endocrinology Diabetes & Metabolism 01/10/23 Efrain Zamarripa MD Referring Physician Cardiology 07/12/23 Rebeca Rodriguez MD Medical Oncologist/Hematologis t Hematology 07/12/23 Micaela Teran PA [address] [facility] ENDOCRINOLOGY, [address] [address] Physician Printing Machine Operator Physician Printing Machine Operator 07/20/24
--- OUTSIDE RECORDS SUMMARY | 2024-08-18 14:42 | XMS_ITS | Referral Summary ---
Author Organization [facility] Address [address] [place] [address] Care Team Providers Care Firearms Model Maker Name Role Phone Bernice Zepeda MD Unavailable [phone] Efrain Zamarripa MD Unavailable Rebeca Rodriguez MD Unavailable Roddy España MD Primary Care Provider [phone] Micaela Teran Unavailable Encounters Date Type Department Care Team Description 08/07/2024 Orders Only [facility] Cardiology [facility] Floor 1, [address] [place] [address] Gayla Mcallister, RN Essential hypertension (Primary Dx); High risk medication use; Encounter for monitoring cardiotoxic drug therapy 08/07/2024 Orders Only [facility] Hematology [facility] Floor 6 [place] [address] Mariana Giraldo CML (chronic myelocytic leukemia) (HCC) (Primary Dx) 08/06/2024 Orders Only [facility] Hematology [facility] Floor [address] [place] [id number] Elayne Abel RN CML (chronic myelocytic leukemia) (HCC) (Primary Dx) 08/06/2024 Results Follow-Up [facility] Cardiology [facility] Floor 1, [address] [place] [address] Miryam Flanagan NP Pro B-type natriuretic peptide, CBC with auto differential, Comprehensive metabolic panel, Additional followed-up results: 4 08/05/2024 12:[address] [facility] [address] [place] [address] Chronic diastolic heart failure (HCC); Acute on chronic diastolic heart failure (HCC); CML (chronic myelocytic leukemia) (HCC); Essential hypertension; Elevated JVP (jugular venous pressure); High risk medication use 08/05/2024 1:00 PM CDT Lab [facility] Hematology [address] [facility] [place] 2nd [address] [place] [address] CML (chronic myelocytic leukemia) (HCC) 08/05/2024 1:30 PM CDT Office Visit [facility] Hematology [address] [facility] [place] 2nd [address] [place] [address] Sara Lee NP CML (chronic myelocytic leukemia) (HCC) (Primary Dx) 07/30/2024 Documentation [facility] Hematology [address] [facility] [address] [place] [id number] Razia Danielle RMA Pre Cert (BCR ABL P210 NPCR) 07/25/2024 9:00 AM CDT Office Visit [facility] Cardiology [address] [facility] Floor 1, [address] [place] [phone] Miryam Flanagan NP Chronic diastolic heart failure (HCC) (Primary Dx); Acute on chronic diastolic heart failure (HCC); CML (chronic myelocytic leukemia) (HCC); Essential hypertension; Elevated JVP (jugular venous pressure); High risk medication use 07/17/2024 11:20 AM CDT Telemedicine [facility] Endocrinology Metabolism and Lipid [address] [facility] 13th [place] [address] [place] [address] Bernice Zepeda MD Type 2 diabetes mellitus with other specified complication, with long-term current use of insulin (HCC) (Primary Dx); Mixed hyperlipidemia; CML (chronic myelocytic leukemia) (HCC); Vitamin D insufficiency; Chronic diastolic heart failure (HCC) from Last 3 Months Allergies Active Allergy Reactions Criticality Noted Date Comments Penicillins Hives Medium 08/18/2017 Medications multivit-min/folic/ vit K/lycop (MEN'S MULTIVITAMIN ORAL) Take by mouth every morning Active ergocalciferol (VITAMIN D) 50,000 unit capsule once a week Activ e glucagon (BAQSIMI) 3 mg/actuation spray,non-aerosol Administer 1 spray into one nostril as needed (hypoglycemia , repeat after 15 minutes if needed) 1 each 1 021 Active daSATinib (SpryceL) 50 mg tabletIndications:C ML (chronic myelocytic leukemia) (HCC) Take 1 tablet (50 mg total) by mouth daily 90 tablet 1 024 Active pen needle, diabetic (BD Ultra-Fine Orig Pen Needle) 29 gauge x 1/2 needleIndications:T ype 2 diabetes mellitus with other specified complication, with long-term current use of insulin ([facility]) USE WITH INSULIN INJECTIONS FOUR TIMES A DAY 400 each 11 024 Active blood-glucose sensor (Dexcom G7 Sensor) deviceIndications:T ype 2 diabetes mellitus with other specified complication, with long-term current use of insulin ([facility]) Use for continuous glucose monitor. Change sensor every 10 days. 9 each 3 024 Active pioglitazone-metfor min (ACTOPLUS MET) 15-850 mg per tabletIndications:T ype 2 diabetes mellitus with other specified complication, with long-term current use of insulin ([facility]) Take 1 tablet by mouth 2 (two) times a day with meals 180 tablet 3 025 2025 Active insulin lispro (HumaLOG) 100 unit/mL pen for injectionIndication s:Type 2 diabetes mellitus with other specified complication, with long-term current use of insulin ([facility]) Inject under the skin before meals, 12 units with breakfast, 14 units with lunch and 12 units with dinner plus 1:25 > 150 mg/dL. TDD 60 units daily 60 mL 3 025 Active dulaglutide (Trulicity) 3 mg/0.5 mL pen injectorIndications :Type 2 diabetes mellitus with other specified complication, with long-term current use of insulin ([facility]) Inject 0.5 mL (3 mg total) under the skin every 7 days 6 mL 2 025 Active fenofibrate nanocrystallized (TRICOR) 145 mg tabletIndications:H ypertriglyceridemia Take 1 tablet (145 mg total) by mouth daily 90 tablet 3 025 2025 Active torsemide (DEMADEX) 20 mg tabletIndications:E ssential hypertension,CML (chronic myelocytic leukemia) (HCC),Acute on chronic diastolic heart failure (HCC) Take 2 tablets (40 mg total) by mouth 2 (two) times a day Take 2 tablets (40 mg) by mouth daily with breakfast and 2 tablets (40 mg) with lunch 360 tablet 3 025 Active insulin glargine (TOUJEO MAX) 300 unit/mL (3 mL) pen for injectionIndication s:Type 2 diabetes mellitus with other specified complication, with long-term current use of insulin ([facility]) 48 units daily 025 Active empagliflozin (Jardiance) 25 mg tabletIndications:C ML (chronic myelocytic leukemia) (HCC),Chronic diastolic heart failure (HCC) 1 pill daily [...] control. Assessment & Plan (04/14/2024 4:47 PM SERVICE OBSERVER): - Last LDL 35, TG 365 (01/2023), [...] 10/16/2023 Assessment & Plan (04/14/2024 4:48 PM SERVICE OBSERVER): - Continue Trulicity 1.5 mg once a [...] 11/22/2020 Assessment & Plan (04/14/2024 4:43 PM SERVICE OBSERVER): - At goal today - Continue current management Assessment & Plan (10/16/2023 3:25 PM CDT): - At goal today Assessment & Plan (01/31/2021 4:45 PM SERVICE OBSERVER): - chlorthalidone 12.5 mg as prescribed by cardio-oncology Plantar fasciitis of right foot 08/04/2020 Vitamin D insufficiency 02/10/2020 Assessment & Plan (04/14/2024 4:48 PM SERVICE OBSERVER): - Last Vitamin D 37 (02/2022), replete - Continue chronic supplement Assessment & Plan (01/16/2024 9:37 PM SERVICE OBSERVER): Continue chronic supplement. Assessment & Plan (07/15/2023 8:43 PM CDT): Continue chronic supplement. Assessment & Plan (01/10/2023 9:43 PM SERVICE OBSERVER): Continue chronic supplement. Assessment & Plan (09/20/2022 7:40 PM CDT): Continue chronic supplement. Recheck level Assessment & Plan (11/18/2021 5:16 PM CDT): He is [facility] supplements. Check Vitamin D. Assessment & Plan (08/12/2021 8:02 PM CDT): He is taking [facility] supplements. Check Vitamin D. Assessment & Plan (01/31/2021 7:05 PM SERVICE OBSERVER): Continue chronic supplement. Assessment & Plan (02/11/2020 4:06 PM SERVICE OBSERVER): Continue chronic supplement and recheck level Proliferative [...] mo supply of 300mg allopurinol qdaily - Elevator Conductor will monitor and decide on extent and duration of therapy. CML (chronic myelocytic leukemia) 08/18/2017 Assessment & Plan (07/20/2024 7:10 PM CDT): May affect the interpretation of the hemoglobin A1c. Not currently receiving steroids. Assessment & Plan (01/10/2023 9:42 PM SERVICE OBSERVER): May affect the interpretation of the hemoglobin [...] recs - Plan for follow up with Elevator Conductor in [facility] (Dr. Rebeca Rodriguez) this coming Sunday08/21/17 [...] 22 Assessment & Plan (01/19/2024 8:33 PM SERVICE OBSERVER): Glucoses higher most of the time, particularly after meals. Needs insulin adjustments as well as restart Trulicity. Assessment & Plan (10/16/2023 3:24 PM CDT): - Diabetes is complicated by proliferative diabetic retinopathy, mild renal impairment, HTN, HLD and obesity. Uncontrolled. Lab Results Component Value Date HGBA1C 7.8 10/16/2023 Per [place] [employer], goal A1c is less 7% [...] counting and tracking using apps such as [employer]. Carb counting handout provided. Discussed trial of [...] that I am available via phone or MyChart if they have any concerns for hypo/hyperglycemia, medication refills, etc. Assessment & Plan (07/15/2023 8:43 PM CDT): Suboptimal control but medication changes and issues. Need to follow updated numbers once therapy has stabilized. Assessment & Plan (01/10/2023 9:44 PM SERVICE OBSERVER): Glucoses variable but within a reasonable margin [...] done. Assessment & Plan (01/31/2021 7:06 PM SERVICE OBSERVER): A1c 7% but with nighttime hypoglycemia. Will switch to levemir as patient's insurance will not cover lantus in February 2021. Decrease long acting insulin to 35 units daily. Can decrease down to 30 units if needed when restarting weight loss program. Glucagon prescribed for emergency use. Continue mealtime insulin of 07/20/09. Assessment & Plan (02/11/2020 4:07 PM SERVICE OBSERVER): Needs adjustments in his insulin, primarily to add insulin at lunchtime and increase breakfast and dinnertime doses Assessment & Plan (05/12/2019 4:23 PM CDT): Asymptomatic, glucoses reasonably stable but needs some follow-up labs Assessment & Plan (01/21/2019 5:01 PM SERVICE OBSERVER): The patient has type 2 diabetes, currently taking insulin in oral agents for his diabetes management. His hemoglobin A1c at today's visit of January 21, 2019 was 7.9%. He has not been following any structured diet at this time. Review carbohydrate counting in written information was provided. He is planning to reduce his carbohydrate intake. He has a freestyle Chandrakant but has had difficulty with the [...] cream PRN to apply to affected areas. 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 Not on file Not on file Not on file Last Filed Vital Signs Vital Sign Reading [...] 08/05/2024 1:11 PM CDT Plan of Treatment Not on file Procedures Procedure Name Priority Date/Time Associated Diagnosis [...] HEMOGLOBIN A1C Routine 04/14/2024 3 :30 PM SERVICE OBSERVER Type 2 diabetes mellitus with other specified complication, with long-term current use of insulin (HCC) from Last 3 Months or Most Recently Relevant to Health Maintenance Results * (ABNORMAL) Differential, auto (08/05/2024 12:54 PM CDT) Neutrophil abs 5.10 1.50 - 6.50 K/cumm Imm gran abs 0.03 0.00 - 0.10 K/cumm [facility] Lymphocyte abs 1.46 0.80 - 3.30 K/cumm [facility] Monocyte abs 0.95(H) 0.20 - 0.80 K/cumm [facility] Eosinophil abs 0.16 0.00 - 0.50 K/cumm [facility] Basophil abs 0.05 0.00 - 0.10 K/cumm [facility] Neutrophil pct 65.8 % [facility] Comment: Interpretive Data Percent cell count reference ranges are not reported, since discordance with absolute values may lead to misinterpretation of CBC data. Current Interpretive Data was last revised on 2017. Imm gran pct 0.4 % [facility] Comment: Interpretive Data Percent cell count reference ranges are not reported, since discordance with absolute values may lead to misinterpretation of CBC data. Current Interpretive Data was last revised on 2017. Lymphocyte pct 18.8 % [facility] Comment: Interpretive Data Percent cell count reference ranges are not reported, since discordance with absolute values may lead to misinterpretation of CBC data. Current Interpretive Data was last revised on 2017. Monocyte pct 12.3 % [facility] Comment: Interpretive Data Percent cell count reference ranges are not reported, since discordance with absolute values may lead to misinterpretation of CBC data. Current Interpretive Data was last revised on 2017. Eosinophil pct 2.1 % [facility] Comment: Interpretive Data Percent cell count reference ranges are not reported, since discordance with absolute values may lead to misinterpretation of CBC data. Current Interpretive Data was last revised on 2017. Basophil pct 0.6 % [facility] Comment: Interpretive Data Percent cell count reference ranges are not reported, since discordance with absolute values may lead to misinterpretation of CBC data. Current Interpretive Data was last revised on 2017. Blood 08/05/2024 12:5 4 PM CDT 08/05/2024 3:41 PM CDT Sara Lee NP LAB BLOOD ORDERABLES Final Result [facility] [address] [facility] Department [place] [address] * CBC with auto differential (08/05/2024 12:54 PM CDT) WBC 7.75 3.80 - 9.90 K/cumm Hgb 13.5 13.0 - 17.5 g/dL [facility] Hct 41.0 38.9 - 50.3 % [facility] Plt 239 150 - 400 K/cumm [facility] MPV 10.8 9.1 - 12.3 fL [facility] RBC 4.71 4.30 - 5.80 M/cumm [facility] MCV 87.0 81.3 - 96.4 fL [facility] MCH 28.7 27.1 - 33.3 pg [facility] MCHC 32.9 32.3 - 35.7 g/dL [facility] RDW CV 14.6 11.1 - 14.9 % [facility] RDW SD 46.5 35.7 - 48.1 fL [facility] NRBC abs 0.00 0.00 - 0.01 K/cumm [facility] Blood 08/05/2024 12:5 4 PM CDT 08/05/2024 3:41 PM CDT us Sara Terence Lee HORSE TRADER LAB BLOOD ORDERABLES Final Result [facility] [address] [facility] Department [place] [address] * (ABNORMAL) BCR/ABL p210 Quantitative, PCR (08/05/2024 12:52 PM CDT) BCR/ABL p210 Positive, below Lower Level of Quantification(A) [facility] BCR/ABL p210 % (IS) <0.0032% [facility] BCR/ABL p210 Interpretation Positive: BCR::ABL1 major (p210) transcripts were detected below the lower level of quantification (LLOQ). [facility] BCR/ABL p210 Specimen Blood [facility] BCR/ABL p210 Result Review Final report reviewed by: CHARLIE Oseguera, [place]([facility])CM, Word Processing Supervisor, on 08/07/2024 09:51:58 CDT. [facility] Comment: Interpretive Data A summary of previous BCR::ABL1 major quantitative RT-PCR results for this patient performed in the [facility] Molecular Diagnostics Lab may be found as a cumulative laboratory report in the Results Review section of the Medical Record. Method: The quantitative BCR::ABL1 assay is performed on the GeneXpert ([employer]) platform. RNA is extracted, converted to cDNA, and BCR::ABL1 and ABL1 cDNA targets are quantified by real-time PCR amplification. Results are reported as the percentage ratio of BCR::ABL1 fusion transcripts to ABL1 transcripts (BCR::ABL1/ABL1) on the International Scale (Opal DELACRUZ, 2010). A BCR::ABL1 value of 0.1% on the International Scale represents a major molecular response in CML (Erskine S, 2008). The analytical sensitivity of this [...] of response rate between clinical trials. Blood 2008;113:1173-1509. Opal HE, Bess P, Gita P, et al. Establishment of the first World Health Organization International Genetic Reference Panel for quantification of BCR-ABL mRNA. Blood 2010;116:z472-968. GeneXpert BCR-ABL V2 Package Insert [id number], Rev B (December 2015). Xpert BCR-ABL Monitor, [id number], Rev A, June 2010. This test was performed at: [facility], [facility], [facility]#[id number], Gayla Gilman, Ph.D., [place], [address], [place] Current interpretive data was last revised 2023. Blood 08/05/2024 12:5 2 PM CDT 08/06/2024 10:24 AM CDT us Sara Lee NP LAB GENETIC TESTING Final Result [facility] Department [place] [address] [facility] * eGFR (08/05/2024 12:52 PM CDT) eGFR [...] 2 PM CDT 08/05/2024 3:46 PM CDT Sara Lee NP LAB BLOOD ORDERABLES Final Result AL [facility] [address] [facility] Department [place] [address] * Pro B-type natriuretic peptide (08/05/2024 12:52 [...] et.al. Eur Heart J. 2006:27:330-337. 2. Roberto RW, Bibi COLINDRES. J. AM Melany Cardiol: Cardiovasc Imag. 2009;2: 216- 225. Interpretive Data Last Revised Date: 2017. Blood 08/05/2024 12:5 2 PM CDT 08/05/2024 3:41 PM CDT us Miryam Flanagan HORSE TRADER LAB BLOOD ORDERABLES Final Resul t Performing Organization Address [facility] Co de Phone Number [facility] [employer]MT ([employer] [place] [address] * Lactate dehydrogenase (LD) (08/05/2024 12:52 PM CDT) Lactate dehydrogenase (LDH) 242 100 - 250 Units/L Blood 08/05/2024 12:5 2 PM CDT 08/05/2024 3:41 PM CDT Sara Lee HORSE TRADER LAB BLOOD ORDERABLES Final Result Performing Organization Address City/[facility] Co de Phone Number [facility] [place] [address] * (ABNORMAL) Comprehensive metabolic panel (08/05/2024 12:52 PM CDT) Sodium 140 135 - 145 mmol/L Potassium, pl 3.7 3.3 - 4.9 mmol/L [facility] Chloride 100 97 - 110 mmol/L [facility] CO2 29 22 - 32 mmol/L [facility] Anion gap 11 2 - 15 mmol/L [facility] BUN 22 6 - 25 mg/dL [facility] Creatinine 1.38(H) 0.80 - 1.30 mg/dL [facility] Glucose 143 70 - 199 mg/dL [facility] Comment: Interpretive Data Fasting glucose >/= 126 [...] classification and Diagnosis of Diabetes Diabetes Care 202; 46: S19-S40. Current interpretive data was last revised 2022. Calcium 10.3 8.5 - 10.3 mg/dL [facility] Bilirubin, total 0.5 0.1 - 1.2 mg/dL [facility] Protein, pl 7.5 6.5 - 8.5 g/dL [facility] Albumin 4.5 3.5 - 5.0 g/dL [facility] Alk phos 69 40 - 130 Units/L [facility] ALT 16 7 - 55 Units/L [facility] AST 23 10 - 50 Units/L [facility] Blood 08/05/2024 12:5 2 PM CDT 08/05/2024 3:41 PM CDT Sara Lee NP LAB BLOOD ORDERABLES Final Result [facility] [address] [facility] Department of Laboratories [place], [place] [id number] * Albumin Creatinine Ratio, Urine (04/21/2024 2:10 PM CDT) Albumin Ur <12.0 mg/L Comment: Interpretive Data No reference range established. Current interpretive data was last revised 2018. Creatinine Ur 33.3 mg/dL [facility] Comment: Interpretive Data No reference range established. Current interpretive data was last revised 2018. Albumin Creatinine Ratio, Ur See Comment 1 - 29 mg/g [facility] Comment:Unable to calculate Urine 04/21/2024 2:10 PM CDT 04/21/2024 3:39 PM CDT Micaela JACQUES LAB URINE ORDERABLES Enedelia aceves Result [facility] [address] [facility] Department [place] [address] * (ABNORMAL) Lipid panel (04/21/2024 2:10 PM [...] revised on 2017. Triglycerides 324(H) <=149 mg/dL [facility] Comment: Interpretive Data Ages < or = [...] revised on 2017. HDL 42 >=40 mg/dL [facility] Comment: Interpretive Data Ages < or = [...] on 2017. LDL, calculated 48 <=129 mg/dL [facility] Comment: Interpretive Data Ages < or = [...] revised on 2023. Non-HDL Cholesterol 97 mg/dL [facility] Comment: Interpretive Data Ages < or = [...] last revised on 2017. Chol/HDL ratio 3 [facility] Blood 04/21/2024 2:10 PM CDT 04/21/2024 3:56 PM CDT Micaela JACQUES LAB BLOOD ORDERABLES Enedelia l Result [facility] Department [place] [address] * POCT hemoglobin A1c (04/14/2024 3:30 PM SERVICE OBSERVER) Hemoglobin A1C, POC 7.0 4.0 - 5.6 % Blood 04/14/2024 3:30 PM SERVICE OBSERVER Micaela JACQUES POINT OF CARE TEST ORDERA BLES Final Result from Last 3 Months or Most Recently Relevant to Health Maintenance Insurance [facility] [employer] [employer] [place] [id number] [facility] Advance Directives For more information, please contact: [phone] * Full Code (Latest Code Status on File) Date Activated Date Inactivated Comments 08/18/2017 5:46 PM 08/19/2017 8:03 PM Care Teams Firearms Model Maker Relationship Specialty Start Date End Date Roddy España MD [employer] [place] [address] PCP - General Family Medicine 01/22/24 Bernice Zepeda MD Referring Physician Endocrinology Diabetes & Metabolism 01/10/23 Efrain Zamarripa MD Referring Physician Cardiology 07/12/23 Rebeca Rodriguez MD Medical Oncologist/Hematologis t Hematology 07/12/23 Micaela Teran PA [address] [facility], [address] [address] Physician Topology Professor Physician Topology Professor 07/20/24
--- OUTSIDE RECORDS SUMMARY | 2024-08-18 14:42 | XMS_ITS | Encounter Summary ---
Author Organization [facility] Address [address] [place] [address] Care Team Providers Care Stack Matcher Name Role Phone Unavailable Primary Care Provider Unavailabl e Reason for Visit * Reason Onset Date Comments Eye Problem 03/09/2022 Encounter Details Date Type Department Care Team (Late st Contact Info) Description 03/09/2022 Telephone [facility] [address] [place] [id number] Ana Cruz Eye Problem Social History Tobacco Use Types Packs/Day Years Used Date Smoking Tobacco: Never Assessed Sex and Gender Information Value Date Recorded Sex Assigned at Not on file Legal Sex Male 10:29 AM CDT Gender Identity Not on file Sexual Orientation Not on file documented as of this encounter Plan of Treatment Not on file documented as of this encounter Visit Diagnoses Not on filedocumented in this encounter
--- OUTSIDE RECORDS SUMMARY | 2024-08-18 14:42 | XMS_ITS | Clinical Summary ---
Author Organization [facility] Address [address] [place] [address] Care Team Providers Care Shop Worker Name Role Phone Unavailable Primary Care Provider Unavailabl e Source Comments [facility],non-owned Affiliates and Associated Physician Practices is amultiple site organization consisting of ambulatory clinics and hospital sitesin [place], [place], [place] and [place]. This disclosure is being madepursuant to the Care Everywhere program and may not contain all information available regarding this patient. Last updated 17.[facility] Allergies Active Allergy Reactions Criticality Noted Date Comments Penicillins Urticaria Medium 08/18/2017 Medications * Be aware that medications may not be up to date on this document. Alwaysverify current medications with the patient. pioglitazone-me tFORMIN (Actoplus Met) 15-850 MG tablet 2 Active spironolactone (Aldactone) 25 MG tablet Take 1 (one) tablet by mouth once daily 3 Active furosemide (Lasix) 40 MG tablet Take 1 (one) tablet by mouth once daily 3 Active potassium chloride ER (Klor-Con M) 20 MEQ tablet Take 1 (one) tablet by mouth once daily 3 Active vitamin D, ergocalciferol, (Drisdol) 1.25 MG (60048 UT) capsule 2 Active dasatinib (Sprycel) 100 MG tablet Take 1 (one) tablet by mouth once daily 3 Active Continuous Blood Gluc Transmit (Dexcom G6 Transmitter) MISC Change every 90 days 2 Active insulin lispro (HumaLOG KwikPen) 100 UNIT/ML pen Inject 6 units with breakfast, 8 units with lunch and 10 units with supper + sliding scale, 1 unit for every 25 points above BG of 150; MDD is 40 units. 2 Active insulin glargine-yfgn (Semglee, yfgn,) pen 40 (forty) Units once daily 2 Active Continuous Blood Gluc Sensor (Dexcom G6 Sensor) MISC CHANGE SENSOR EVERY 10 DAYS 2 Active Glucagon 3 MG/DOSE POWD [place] 1 spray into the nose as needed 1 Active Insulin Pen Needle (BD ULTRA-FINE PEN NEEDLES) 29G X 12.7MM MISC Use with insulin injections 4 times daily 2 Active BD ULTRA-FINE PEN NEEDLES 29G X 12.7MM MISC 3 Active timolol maleate (Timoptic) 0.5 % ophthalmic solution INSTILL 1 DROP IN BOTH EYES 2 TIMES DAILY 3 Active Active Problems Problem Noted Date Diagnosed Date Double vision 03/27/2022 Elevated JVP (jugular venous pressure) 2 Essential hypertension 11/22/2020 Overview (03/27/2022): Last Assessment & Plan: - chlorthalidone 12.5 mg as prescribed by cardio-oncology Plantar fasciitis of right foot 08/04/2020 Elevated blood-pressure read ing without diagnosis of hypertension 04/07/2020 Vitamin D insufficiency 12/09/2019 Overview (03/27/2022): Last Assessment & Plan: He is taking mcc supplements. Check Vitamin D. 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 Kidney fxn stable thusfar. - Give 300 mg allopurinol PO today now - D/c home with 1 mo supply of 300mg allopurinol qdaily - Water Filterer Helper will monitor and decide on extent and duration of therapy. 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 Also need to recheck vitamin-D level Localized swelling, mass, or lump of lower extre mity, left 08/18/2017 Overview (03/27/2022): Last Assessment & Plan: Appearance 1 wk ago in s/o repeated camping and manual labor while on knees. Suspect benign (nonballotable) but may be potential biopsy source if c/f lymphoma (would be atypical given his leukocytosis is neutrophilic). - F/u US study of LLE mass - prelim read likely an incidentoloma Type 2 diabetes mellitus with other specified co mplication 08/18/2017 Overview (03/27/2022): Onset April 1996, age 20 Last Assessment & Plan: Asymptomatic, glucoses reasonably stable but needs some follow-up labs Family History Medical History Relation Name Comments Blindness Neg Hx Glaucoma Neg Hx Macular Degeneration Neg Hx Social History Tobacco Use Types Packs/Day Years Used Date Smoking Tobacco: Never Passive Smoke Exposure: Never Smokeless Tobacco: Never Tobacco Cessation:Counseling Given: No Alcohol Use Standard Drinks/Week Comments Never 0 (1 standard drink = 0.6 oz pur e alcohol) Sex and Gender Information Value Date Recorded Sex Assigned at Not on file Legal Sex Male 10:29 AM CDT Gender Identity Not on file Sexual Orientation Not on file Plan of Treatment Health Maintenance Due Date Last Done Comments COLOGUARD (AGES 45-75) - COL ON CA SCREENING 1973 COLON MONITORING 1973 COLONOSCOPY - COLON CA SCREENING 1973 CT COLONOGRAPHY - COLON CA SCREENING 1973 Colorectal Cancer Screening 1973 FIT - COLON CA SCREENING 1973 FLEX SIG - COLON CA SCREENING 1973 COVID-19 VACCINE (#1) 1978 HIV SCREENING 1988 HEPATITIS C SCREENING 09/02/1991 DTAP/TDAP/TD VACCINES (1 - Tdap) 1992 HEPATITIS B VACCINE (1 of 3 - 19+ 3-dose series) 1992 PNEUMOCOCCAL VACCINE 50+ (1 of 2 - PCV) 1992 ZOSTER VACCINE (1 of 2) 1992 DIABETES-STATIN 2013 DIABETES-FOOT EXAM WITH MONOFILAMENT 03/27/2022 DIABETES-HGB A1C 08/24/2022 02/24/2022 DIABETES-SERUM CREATININE 02/24/2023 02/24/2022 DIABETES RETINOPATHY SCREENING 04/04/2023 0 04/04/2022, 03/27/2022, 02/24/2022 DEPRESSION SCREENING 02/13/2024 DIABETES - URINE PROTEIN SCREENING 02/13/2024 02/24/2022 INFLUENZA VACCINE (#1) 2024 HIB VACCINE Aged Out No longer eligi ble based on patient's age to complete this topic HPV VACCINE Aged Out No longer eligi ble based on patient's age to complete this topic MENINGOCOCCAL (Group B) VACCINE SHARED DECISION-MAKING Aged Out No longer eligible based on patient's age to complete this topic MENINGOCOCCAL GROUPS A/C/Y/W VACCINE Aged Out No longer eligible b ased on patient's age to complete this topic Procedures Procedure Name Priority Date/Time Associated Diagnosis Comments EYE EXAM 02/24/2022 from Last 3 Months or Most Recently Relevant to Health Maintenance Results * EYE EXAM (02/24/2022) Anatomical Region Laterality Modality Other Narrative 02/24/2022 Ordered by an unspecified provider. us Scanned Document SCANNING ONLY Final Result from Last 3 Months or Most Recently Relevant to Health Maintenance Insurance [facility] Member Subscriber Plan / Payer (Ef fective 2024-Present) Name:Mathew Lopez Relation to Subscriber:Self Name:Mathew Lopez Payer ID:[id number] (NAIC) Type:O EntregadorO Address: [address] [place] [address] [facility] Member Subscriber Plan / Payer (Ef fective 2022-Present) Name:Mathew Lopez Relation to Subscriber:Self Name:MATHEW LOPEZ Payer ID:[id number] (NAIC) Type:O EntregadorO Address: [place] [id number] [place] [id number]
--- OUTSIDE RECORDS SUMMARY | 2024-08-18 14:42 | XMS_ITS | Encounter Summary ---
Author Organization [facility] Address [address] [place] [address] Phone Care Team Providers Care Senior Database Programmer Name Role Phone Bernice Zepeda MD Unavailable Olayinka Germain MD Primary Care Provider [phone] Althea Boland Unavailable [phone] Rebeca Rodriguez MD Unavailable [phone] Bernice Zepeda MD Unavailable [phone] Efrain Zamarripa MD Unavailable Rebeca Rodriguez MD Unavailable [phone] Roddy España MD Primary Care Provider Micaela Teran Unavailable Encounter Details Date Type Department Care Team (Late st Contact Info) Description 04/27/2022 Telephone [facility] Cardiology [address] [facility] [address] [place] [address] [place] [address] Efrain Zamarripa MD [address] [facility] [address] [place] [address] Social History Tobacco Use Types Packs/Day Years Used Date Smoking Tobacco: Former Cigarettes Q uit: 2002 Smokeless Tobacco: Never Alcohol Use Standard Drinks/Week Comments Never 0 (1 standard drink = 0.6 oz pur e alcohol) AUDIT-C Answer Date Recorded Frequency of Alcohol Consumption Never 10/22/2018 Average Number of Drinks Not on file 019 Frequency of Binge Drinking Not on file 10/13 Sex and Gender Information Value Date Recorded Sex Assigned at Not on file 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 Gender Identity Not on file Sexual Orientation Male 07/15/2023 3: 50 PM CDT 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 Not on file Not on file Not on file documented as of this encounter Plan of Treatment Not on file documented as of this encounter Visit Diagnoses Not on filedocumented in this encounter Care Teams Senior Database Programmer Relationship Specialty Start Date End Date Olayinka Germain MD [address] [place] [address] PCP - General Family Medicine 02/10/20 01/21/24 Roddy España MD [address] [place] [address] PCP - General Family Medicine 01/22/24 Bernice Zepeda MD Referring Physician Endocrinology Diabetes & Metabolism 10/22/18 01/09/23 Althea Boland PA [address] [place], [place] [id number] Physician Superintendent House Physician Superintendent House 08/12/2101/09 Rebeca Rodriguez MD [address] [place], [place] [id number] Medical Oncologist/Hematologi st Hematology 09/18/22 01/09/23 Bernice Zepeda MD [address] [place] [address] Referring Physician Endocrinology Diabetes & Metabolism 01/10/23 Efrain Zamarripa MD [address] [facility] [place], [place] [address] Referring Physician Cardiology 07/12/23 Rebeca Rodriguez MD [address] [facility] [place] [place] [address] Medical Oncologist/Hematologi st Hematology 07/12/23 Micaela Teran PA [address] [facility], [address] [address] Physician Superintendent House Physician Superintendent House 07/20/24 documented as of this encounter
[2024-08-18 14:45] VITALS: BP 142/75; PULSE 73; RESP 18; TEMP 36.2; O2SAT 98
[2024-08-18] MEDS: TRIAMCINOLONE ACET INJ 40 MG/ML VIAL IM (15:07)
--- NOTE | 2024-08-18 15:09 | ED_ITS ---
HPI - General Adult General Chief complaint: Skin/Abscess/Foreign Body Stated complaint: Skin/Abscess/Foreign Body History of Present Illness HPI narrative: Gene Nagy is a 48 y/o male who presents with complaints of having a reaction to poison rah. He states that he was outside working in the [employer] a few days ago with family and other family members broke out in a rash similar to his and have started treatment with steroids and antihistamines there is is improving. He has an area to his right montgomery area and the left upper leg area right knee area. He complains of area being itching no drainage know her real pain. Related Data Home Medications ?Medication ?Instructions ?Recorded ?Confirmed ?Last Taken ?Type dasatinib 100 mg tablet (Sprycel) 100 mg PO DAILY 03/17/22 05/10/22 Unknown History furosemide 40 mg tablet 40 mg PO DAILY 03/17/22 05/10/22 Unknown History pioglitazone 15 mg-metformin 850 1 tablet PO DAILY 03/17/22 05/10/22 Unknown History mg tablet potassium chloride 20 mEq 20 meq PO DAILY 03/17/22 05/10/22 Unknown History tablet,extended release(part/cryst) (Klor-Con M) spironolactone 25 mg tablet 25 mg PO DAILY 03/17/22 05/10/22 Unknown History blood-glucose sensor (Dexcom G6 05/10/22 05/10/22 Unknown History Sensor device) blood-glucose transmitter (Dexcom 05/10/22 05/10/22 Unknown History G6 Transmitter device) ergocalciferol (vitamin D2) 1,250 50,000 unit PO WEEKLY 05/10/22 05/10/22 Unknown History mcg (50,000 unit) capsule insulin glargine-yfgn 100 unit/mL 100 unit subcut DAILY 05/10/22 05/10/22 Unknown History (3 mL) subcutaneous pen (Semglee (insulin glargine-yfgn) Pen) torsemide 20 mg tablet 60 mg PO DAILY 05/10/22 05/10/22 Unknown History Allergies Allergy/AdvReac Type Severity Reaction Status Date / Time Penicillins AdvReac Mild Hives Verified 08/18/24 14:49 Review of Systems Review of Systems: All systems reviewed & are unremarkable except as noted in HPI and below Exam Narrative: GENERAL: Well-appearing, well-nourished, and in no acute distress. HEAD: Normocephalic, atraumatic. EYES: PERRLA and EOMI. ENT: Nares clear, no rhinorrhea or epistaxis. Mucous membranes moist. Oropharynx without tonsillar hypertrophy exudate or other lesions. NECK: Supple. No adenopathy or masses. No carotid bruits or JVD CHEST: Clear to auscultation. No respiratory distress. No wheezes rales or rhonchi HEART: Regular rate and rhythm. No murmur heard. Normal peripheral pulses. ABDOMEN: Soft, nontender, nondistended, normal active bowel sounds. EXTREMITIES: Normal range of motion. SKIN: + erythemic with some scabbing no drainage/ no evidence of cellulitis NEURO: No focal deficits. Alert and oriented x3. PSYCH: Normal mood and affect. Course Course Level of Care: Express Care Visit Vital Signs Vital signs: Vital Signs Temperature 36.2 C L 08/18/24 14:45 Pulse Rate 73 08/18/24 14:45 Respiratory Rate 18 08/18/24 14:45 Blood Pressure 142/75 H 08/18/24 14:45 Pulse Oximetry 98 08/18/24 14:45 Oxygen Delivery Room Air 08/18/24 14:45 Temperature 36.2 C L 08/18/24 14:45 Pulse Rate 73 08/18/24 14:45 Respiratory Rate 18 08/18/24 14:45 Blood Pressure 142/75 H 08/18/24 14:45 Pulse Oximetry 98 08/18/24 14:45 Oxygen Delivery Room Air 08/18/24 14:45 Medical Decision Making [facility] Narrative Medical decision making narrative: 48 y/o male who presents after being exposed to poison rah about 3-4 days ago area of erythema / itching / some scabbing and to the right [place]gomery area right knee and left lower leg. Denies any other known exposures Plan to treat with Kenalog IM shot here, continued Cetirizine and Triamcinolone topically Close PCP follow up Patient denies having any further questions and wanted to leave before d/c paper work is completed as he had another place he needed to be. Medical Records Medical records reviewed: Yes I reviewed the external patient's medical records. Vital Signs Vital Signs: Vital Signs Temperature 36.2 C L 08/18/24 14:45 Pulse Rate 73 08/18/24 14:45 Respiratory Rate 18 08/18/24 14:45 Blood Pressure 142/75 H 08/18/24 14:45 Pulse Oximetry 98 08/18/24 14:45 Oxygen Delivery Room Air 08/18/24 14:45 Temperature 36.2 C L 08/18/24 14:45 Pulse Rate 73 08/18/24 14:45 Respiratory Rate 18 08/18/24 14:45 Blood Pressure 142/75 H 08/18/24 14:45 Pulse Oximetry 98 08/18/24 14:45 Oxygen Delivery Room Air 08/18/24 14:45 VItals reviewed by me Discharge Plan Discharge Clinical Impression: Contact dermatitis Qualifiers: Contact dermatitis type: irritant Contact dermatitis trigger: non-food plants Qualified Code(s): L24.7 - Irritant contact dermatitis due to plants, except food Patient Disposition: Home Condition: Stable Instructions: Antibiotic Form Additional Instructions: You received the steroid injection that is long acting Start taking the Cetirizine once daily to help with the itching Start using the Triamcinolone topical cream to affected areas Follow up with your PCP in 1 week If you develop any worsening symptoms or concerns return or go to the ER Patient Language: Kosovan Prescriptions: New cetirizine 10 mg tablet 10 mg PO DAILY PRN (Reason: allergy symptoms) Qty: 30 0RF triamcinolone acetonide 0.1 % cream 1 applic topical BID Qty: 80 1RF No Action furosemide 40 mg tablet 40 mg PO DAILY spironolactone 25 mg tablet 25 mg PO DAILY potassium chloride [Klor-Con M20] 20 mEq tablet,ER particles/crystals 20 meq PO DAILY pioglitazone-metformin 15-850 mg tablet 1 tablet PO DAILY Sprycel 100 mg tablet 100 mg PO DAILY torsemide 20 mg tablet 60 mg PO DAILY ergocalciferol (vitamin D2) 1,250 mcg (50,000 unit) capsule 50,000 unit PO WEEKLY (DME) Dexcom G6 Sensor Device MISCELLANEOUS (DME) Dexcom G6 Transmitter Device MISCELLANEOUS insulin glargine-yfgn [Semglee(insulin glarg-yfgn)Pen] 100 unit/mL (3 mL) insulin pen 100 unit SUBCUT DAILY Follow-up/Referrals: Patria,Roddy Walls MD [Primary Care Provider] - 1 Week Time of Disposition: 15:13
== END 2024-08-18 15:15 | disposition home or self-care (01) ==
PROVIDERS: Emergency Provider Nurse Practitioner Family; PCP Family Medicine
DX: L24.7 Irritant contact dermatitis due to plants, except food (principal)
CPT/HCPCS: 96372; 99213; G0463; J3301